=== PATIENT | male | born 1985 | race Asian ===

== ENCOUNTER 2025-08-17 14:07 | Emergency (ER) | payer OTHER ==
[2025-08-17] MEDS: Diphtheria,Pertussis(Acell),Tetanus Vaccine 0.5 ML Syringe IM ONE (14:35)
== END 2025-08-17 14:39 | disposition home or self-care (01) ==
LOC: DL.ED 14:07
DX: S61.451A Open bite of right hand, initial encounter (principal); Z23 Encounter for immunization; Z79.899 Other long term (current) drug therapy; W55.01XA Bitten by cat, initial encounter
CPT/HCPCS: 90471; 90715; 99283-25